=== PATIENT | female | born 1985 | race Caucasian/White ===

== ENCOUNTER → 2018-03-27 | Outpatient (CLI) | payer OTHER ==
--- NOTE | 2018-03-31 08:29 | Diagnostic Imaging Report ---
#[id number] - USBRECOMLT ULTRASOUND OF THE LEFT BREAST : 03/27/2018 No prior exams were available for comparison. Color flow and real-time ultrasound were performed on the entire left breast with scanning in all four quadrants, retroareolar region and the left axilla. There are no cystic or solid masses identified. IMPRESSION: NEGATIVE There is no sonographic evidence of malignancy. A 3 year screening mammogram is recommended. Logan Nickerson Jr., D.O. cw/:03/27/2018 13:27:04 Pad Machine Feeder: SRIDHAR SALVADOR, [facility] letter sent: Normal Exam Ultrasound BI-RADS: 1 Negative
== END | disposition home or self-care (01) ==
LOC: US 11:15
PROVIDERS: ATTEND Internal Medicine
DX: N60.12 Diffuse cystic mastopathy of left breast (principal)